=== PATIENT | female | born 1935 | race Caucasian/White ===

== ENCOUNTER 2016-10-26 11:33 | Emergency (ER) | payer MEDICARE ==
[2014-06-26 10:32] VITALS: BMI 33.2
[~2016-10-26 11:33] MED LIST: ALEVE220 MG PO; AMBIEN5 MG PO; BAYER CHEWABLE81 MG PO; BENADRYL25 MG PO; BONIVA150 MG PO; BUSPAR 15 MG TA15 MG PO; CENTRUM SILVER1 TA2 PO; COMBIGAN OPHT DR5 ML EACH EYE; COUMADIN5 MG PO; CRESTOR5 MG PO; DULCOLAX10 MG/SUPP RC; K-TAB10 MEQ PO; LASIX INJ40 MG/4 ML PO; MEDROL8 MG PO; NEXIUM40 MG PO; ROCEPHIN 1 GM/D51 G1 IV; SALINE FLUSH10 ML IV; THEREMS-M1 TAB PO; ZESTORETIC 20/11 TAB PO; ZOFRAN4 MG PO
[2016-10-26 12:02] LABS: BASOPHILS 0.3 % (0.0-2.0); EOSINOPHILS 2.3 % (0-7); HEMOGLOBIN 15.2 g/dL (12-16); IMMATURE GRANULOCYTES 0.3 % (0-5); LYMPHOCYTES 12.7 % (15-50); MCH 32.1 pg (26.0-34.0); MCHC 33.8 g/dL (31.0-37.0); MCV 94.9 fL (80.0-100.0); MEAN PLATELET VOLUME 10.4 fL (7.4-10.4); MONOCYTES 7.1 % (2-11); NEUTROPHILS 77.3 % (40-80); PLATELET COUNT 277 10x3/uL (130-400); RBC 4.74 10x6/uL (4.00-5.40); RDW 13.4 % (11.5-14.5); WBC 10.7 10x3/uL (4.8-10.8)
[2016-10-26 12:25] LABS: APTT 49.7 SECONDS (22.8-39.4); INR 2.48 (0.85-1.17); PROTIME 26.9 SECONDS (11.6-15.0)
[2016-10-26 12:26] LABS: ALBUMIN 3.8 g/dL (3.4-5.0); ALKALINE PHOSPHATASE 124 U/L (46-116); ALT (SGPT) 42 U/L (10-68); BILIRUBIN - TOTAL 1.03 mg/dL (0.2-1.3); CALC OSMOLALITY 270 mosm/kg (275-300); CALCIUM 7.8 mg/dL (8.5-10.1); CARBON DIOXIDE 27.5 mmol/L (21.0-32.0); CHLORIDE - SERUM 98 mmol/L (98-107); CREATININE - SERUM 0.6 mg/dL (0.6-1.3); GLUCOSE 105 mg/dL (74-106); POTASSIUM - SERUM 4.1 mmol/L (3.5-5.1); PROTEIN - SERUM 7.9 g/dL (6.4-8.2); SODIUM 135 mmol/L (136-145); UREA NITROGEN 15 mg/dL (7-18); eGFR NON AFRICAN AMERICAN > 90 mL/min (90-120)
[2016-10-26 12:34] LABS: CHOL - HDL RATIO 3.2 ratio (2.3-4.1); CHOLESTEROL, TOTAL 172 mg/dL (0-200); CKMB 2.3 U/L (0.0-3.6); CREATINE KINASE 96 UL (21-215); HDL CHOLESTEROL 54 mg/dL (32-96); LDL CHOLESTEROL 76 mg/dL (0-100); LDL-HDL RATIO 1.4 ratio (1.5-3.5); TRIGLYCERIDE 211 mg/dL (30-200); TROPONIN-I < 0.017 ng/mL (0.000-0.060)
== END 2016-10-26 14:05 | disposition home or self-care (01) ==
LOC: D.ER 11:33
PROVIDERS: Emergency Medicine
DX: R07.89 Other chest pain (principal); I50.9 Heart failure, unspecified; I10 Essential (primary) hypertension; Z95.0 Presence of cardiac pacemaker

== ENCOUNTER 2019-02-03 10:51 | Emergency (ER) | payer MEDICARE ==
[~2019-02-03] VITALS: Ht 170.2 cm; Wt 92.7 kg
[2019-02-03 10:59] VITALS: Ht 170.2 cm; Wt 92.7 kg
[2019-02-03] MEDS ORDERED: NEURONTIN 300300 MG PO (11:05)
[2019-02-03] MEDS ORDERED: KEFLEX500 MG PO (11:05)
[2019-02-03] MEDS ORDERED: HYDROCODON-ACE1 EAC7 PO (11:06)
[2019-02-03] MEDS ORDERED: VISTARIL25 MG PO (11:06)
[2019-02-03] MEDS ORDERED: ULTRAM50 MG PO (11:06)
[2019-02-03] MEDS ORDERED: NEXIUM40 MG PO (11:06)
[2019-02-03] MEDS ORDERED: PAZEO2.5 ML EACH EYE (11:07)
[2019-02-03] MEDS ORDERED: TRAVATAN Z2.5 ML EACH EYE (11:07)
[2019-02-03 12:07] LABS: BASOPHILS 0.2 % (0-2); HEMATOCRIT 41.5 % (36.0-48.0); HEMOGLOBIN 14.3 g/dL (12-16); IMMATURE GRANULOCYTES 0.3 % (0-5); MCH 32.3 pg (26.0-34.0); MCHC 34.5 g/dL (31.0-37.0); MCV 93.7 fL (80.0-100.0); MONOCYTES 7.7 % (2-11); NEUTROPHILS 82.8 % (40-80); PLATELET COUNT 254 10x3/uL (130-400); RBC 4.43 10x6/uL (4.00-5.40); RDW 13.1 % (11.5-14.5); WBC 13.7 10x3/uL (4.8-10.8)
[2019-02-03 12:30] LABS: APPEARANCE CLEAR (CLEAR); BILIRUBIN NEGATIVE (NEGATIVE); COLOR YELLOW (YELLOW); GLUCOSE NEGATIVE (NEGATIVE); KETONE NEGATIVE (NEGATIVE); NITRITE NEGATIVE (NEGATIVE); PROTEIN NEGATIVE (NEGATIVE); UROBILINOGEN NORMAL (NORMAL)
[2019-02-03 12:31] LABS: ANION GAP 9.6 mmol/L (8-16); BILIRUBIN - TOTAL 1.19 mg/dL (0.2-1.3); CALCIUM 8.7 mg/dL (8.5-10.1); CARBON DIOXIDE 32.4 mmol/L (21.0-32.0); CREATININE - SERUM 0.8 mg/dL (0.6-1.3); MAGNESIUM - SERUM 2.2 mg/dL (1.8-2.4); PROTEIN - SERUM 7.2 g/dL (6.4-8.2)
[2019-02-03 12:44] LABS: ALBUMIN 3.5 g/dL (3.4-5.0)
[2019-02-03 13:03] VITALS: BP 124/55
== END 2019-02-03 13:04 | disposition home or self-care (01) ==
LOC: D.ER 10:51
PROVIDERS: Emergency Medicine
DX: R33.9 Retention of urine, unspecified (principal); I50.9 Heart failure, unspecified; R06.00 Dyspnea, unspecified; E87.6 Hypokalemia